=== PATIENT | male | born 1965 | race Caucasian/White ===

== ENCOUNTER 2024-11-10 19:39 | Inpatient (IN) | payer OTHER, SELFPAY ==
[2024-11-10 14:28] VITALS: BP 154/113
--- NOTE | 2024-11-10 15:08 | ED.GENMED ---
History of Present Illness
General
Chief Complaint: Male Genito-Urinary Symptoms
Source: patient
Exam Limitations: none
Time Seen by Provider: 11/10/24 14:38
Nursing documentation reviewed up to this point in time: agreed with
History of Present Illness
History of Present Illness:
58-year-old male patient of Dr. Mares urology, being treated with oral therapy for prostate cancer, developed trouble urinating emptying his bladder recently, started intermittent catheterizations at nighttime recently, subsequently developed
fever and chills, with hematuria, back pain pain in his scrotum right greater than left
Nausea without vomiting, he has chronic back pain takes oxycodone, has been constipated recently,
Past History
Past History
ED Past Medical History: Cancer and HTN
ED Past Surgical History: Orthopedic
Social History
Tobacco: Non-smoker
Alcohol: None
Drug: None
Personal:
Living: with family
Employment: Employed
Phy Exam
Physical Exam
Physical Exam:
Physical Exam
General: no apparent distress, not acutely ill
Neck: No jaundice
Heart: Tachycardia
Lungs: no acute respiratory distress. clear bilaterally
Abdomen: Mild suprapubic tenderness tenderness in the right scrotum
Neuro: alert and oriented. no focal neurological deficits
Skin: no rash
Psychiatric: well kept. interactive and cooperative
Extremities: no edema.
Course
Orders/Labs/Results
Orders:
Orders
11/10/24 14:33
EKG [Electrocardiogram (*1)] Urgent
Reason for Study: Vertigo / Dizzy
EKG- Treatment ONCE
11/10/24 14:50
CT Abd/pel Without Iv Or Oral Urgent
Comment:
Reason For Exam: fever pain
Straight cath- Treatment ONCE
Scrotum US [US Scrotum] Urgent
Comment:
Reason For Exam: fever pain
11/10/24 14:51
Bladder Scan- Treatment ONCE
HYDROmorphone [Dilaudid] 1 mg IV NOW STA
11/10/24 14:52
0.9% Sodium Chloride 1000 ml [Nss] 1,000 ml IV BOLUS
Acetaminophen [Tylenol] 1,000 mg PO NOW STA
11/10/24 15:10
Acetaminophen [Tylenol] 1,000 mg .ROUTE .STK-MED ONE
11/10/24 15:19
Complete Blood Count/With Diff Urgent
Comprehensive Metabolic Panel Urgent
Blood Culture Q30M
YONATAN Source: Blood/Venous
Specimen Description:
Blood Culture Q30M
YONATAN Source: Blood/Venous
Specimen Description:
11/10/24 16:07
Urinalysis Reflex To Culture Urgent
Date Specimen was Collected: 11/10/24
Time Specimen was Collected: 16:03
Urine Microscopic Reflex Cult Urgent
Urine Culture Urgent
YONATAN Source: U
Specimen Description:
Date Specimen was Collected: 11/10/24
Time Specimen was Collected: 16:03
11/10/24 17:27
LevoFLOXacin 750 MG/150 ML [Levaquin] 750 mg in 150 ml IV NOW
11/10/24 17:34
Add On- LAB Urgent
Tests Added?: urine culture
Abnormal Lab Results
11/10/24 11/10/24
15:19 16:07
WBC 18.8 H 10^3/uL
(4.8-10.8)
RBC 4.64 L 10^6/uL
(4.70-6.10)
Abs Immat Gran (auto) 0.1 H 10^3/uL
(0-0.05)
Absolute Neuts (auto) 15.9 H 10^3/uL
(1.4-6.5)
Absolute Lymphs (auto) 0.9 L 10^3/uL
(1.2-3.4)
Absolute Monos (auto) 1.9 H 10^3/uL
(0.1-0.6)
Immature Gran % 0.6 H %
(0-0.5)
Neutrophils % 84.5 H %
(42.2-75.2)
Lymphocytes % 4.7 L %
(20.5-51.1)
Monocytes % 9.9 H %
(1.7-9.3)
Sodium 132 L mmol/L
(135-145)
Glucose 145 H mg/dl
(70-99)
Ur Occult Blood Reflex 2+ A
(Negative)
Urine Nitrite (Reflex) Positive A
(Negative)
Leukocyte Esterase Rfl 3+ A
(Negative)
Urine RBC 3-6 A /HPF
(0-2)
Urine WBC (Reflex) 30-40 A /HPF
(0-5)
Urine Bacteria (Reflex) Many A
(Negative)
Urine Albumin (Reflex) 1+ A
(Neg - Trace)
11/10/24 15:19
11/10/24 15:19
Vital Signs
Initial and Last Documented VS:
Initial Vital Signs
Temp Pulse Resp BP Pulse Ox
98.6 F 134 20 154/113 96
11/10/24 14:28 11/10/24 14:28 11/10/24 14:28 11/10/24 14:28 11/10/24 14:28
Last Documented Vital Signs
Temp Pulse Resp BP Pulse Ox
98.6 F 134 20 154/113 96
11/10/24 14:28 11/10/24 14:28 11/10/24 14:28 11/10/24 14:28 11/10/24 15:09
*Pulse Oximetry
SaO2: 96
Oxygen Mode of Delivery: Room air
Patient hypoxic: no
*Critical Care Note
Total Time (30-74mins, 75-104mins- exclusive of procedures): 32
Update Note
Update Note:
415 able to void spontaneously postvoid 220 cc minimal dysuria
White count noted urinalysis noted blood culture urine cultures noted patient has had fever 102-103 at home concern for bacteremia allergies noted
ED Attending Note
-
Portions of this chart may have been created with voice recognition software.� Occasional wrong word or��sound alike� substitutions may have occurred due to the inherent limitations of voice recognition software.
Discharge Plan
Departure
Patient Disposition: Admit
Date of Disposition: 11/10/24
Time of Disposition: 17:45
Admit to: Med/Surg
Presentation/result/management discussed w/ accepting MD/DO: Hospitalist
Patient with high blood pressure during this ER visit?: No
Condition: Fair
Discharge Problem:
Urosepsis
Prescriptions:
No Action
Metamucil Packet
1 packet PO DAILY
ibuprofen 600 mg Tablet
600 mg PO Q6HPRN PRN (Reason: MILD PAIN)
finasteride 5 mg Tablet
5 mg PO DAILY
alfuzosin 10 mg Tablet Extended Release 24 Hr
10 mg PO QPM
oxycodone 10 mg Tablet
10 mg PO Q6HPRN PRN (Reason: SEVERE PAIN)
Referrals:
Brianda Thomas DO [Family Provider, Internal Medicine]
Interventions
Interventions:
*Risk Screen - Suicide Last Done: 11/10/24 14:28
*General Assessment Last Done: 11/10/24 15:26
*Neglect/Abuse Screening Last Done: 11/10/24 14:28
*ED- Fall Risk Assessment Last Done: 11/10/24 15:26
*ED COVID-19 Vaccine History Last Done: 11/10/24 15:26
*ED Influenza Vaccine History Last Done: 11/10/24 15:26
Discharge Date and Time
Print Language: MAURITANIAN
[2024-11-10] MEDS: DILAUDID 1 MG IV ×2 (15:20→22:41)
[2024-11-10] MEDS: TYLENOL 1000 MG PO (15:21)
[2024-11-10 15:22] VITALS: BMI 30.1
[2024-11-10] MEDS: NSS 1000 IV ×2 (15:22→22:45)
[2024-11-10 15:42] LABS: Hematocrit 39.2 % (39.0-52.0); Hemoglobin 13.3 g/dL (13.0-18.0); Mean Corp Hgb Conc. 33.9 g/dL (33.0-37.0); Mean Corpuscular Volume 84.5 fL (80.0-94.0); Nucleated Red Blood Cells % 0 % (-); Platelet Count 184 10^3/uL (130-400); Red Cell Dist. Width 11.9 % (11.5-14.5)
[2024-11-10 15:51] LABS: ALT (SGPT) 35 U/L (0-50); AST (SGOT) 35 U/L (17-59); Albumin 4.5 g/dl (3.5-5.0); Alkaline Phosphatase 79 U/L (38-126); Blood Urea Nitrogen 18 mg/dl (9-20); Calcium 8.8 mg/dl (8.4-10.2); Carbon Dioxide 26 mmol/L (22-30); Chloride 98 mmol/L (98-107); Estimated Creatinine Clearance 114 ml/min; Glucose 145 mg/dl (70-99); Potassium 4.2 mmol/L (3.5-5.1); Sodium 132 mmol/L (135-145); Total Protein 7.1 g/dl (6.3-8.2); eGFR > 60.00
[2024-11-10 16:19] LABS: Urine Character Clear (Clear)
[2024-11-10 16:32] LABS: Urine Squamous Cell 0-2 /LPF (Few)
[2024-11-10 16:33] LABS: Urine White Cell 30-40 /HPF (0-5)
[2024-11-10] MEDS: LEVAQUIN 150 IV (17:39)
--- NOTE | 2024-11-10 18:03 | HPS.HSE ---
Family Physician
-
Family Physician: Brianda Thomas
Chief Complaint
-
Dysuria, urinary frequency bilateral flank pain, hematuria, scrotal swelling right greater than left
History of Present Illness
58-year-old male with history of prostate cancer, delayed bladder emptying/urinary retention who started intermittent catheterizations at nighttime approximately 1 week ago who comes in complaining of fever and chills with temp 102�103F along with
hematuria, urinary frequency, dysuria, bilateral flank pain, back pain and pain in scrotum right greater than left. He is on chronic oxycodone for his chronic back pain and also reports feeling constipated recently. Other past medical history
includes hypertension, prostate cancer
Medical History
Past Medical History
Past Medical History: Reports Other
Additional Past Medical History:
Hypertension
BPH
Question history of prostate CA
Past Surgical History: Reports Other
Additional Past Surgical History:
Left and right knee replacement
Right shoulder replacement
Rhizotomy to back
Social History
Tobacco: Non-smoker
Alcohol: None
Drug: None
Personal:
Living: With Family
Family History
Family History: Not pertinent
Allergies / Home Medications
Allergies reflects when Allergies were last updated in [facility].
Home Medications with original date entered in [facility]
Allergy/Medication List:
Allergies
Allergy/AdvReac Type Severity Reaction Status Date / Time
Penicillins Allergy Rash Verified 03/02/12 13:48
Home Medications
alfuzosin 10 mg tablet,extended release 24 hr 10 mg PO QPM 11/10/24
finasteride 5 mg tablet 5 mg PO DAILY 11/10/24
ibuprofen 600 mg tablet 600 mg PO Q6HPRN PRN MILD PAIN 11/10/24
oxycodone 10 mg tablet 10 mg PO Q6HPRN PRN SEVERE PAIN 11/10/24
psyllium 1 packet PO DAILY 11/10/24
Review of Systems
-
History Source: Patient and Family ( at bedside)
A 12 point ROS was completed and negative except as noted: Yes
Constitutional: Reports Fever and Chills
EENT: Denies Sore Throat or Runny Nose
Respiratory: Denies Cough or Trouble Breathing
Cardiac: Denies Chest Pain, Diaphoresis, Palpitations or Syncope
Abdomen/GI: Reports Abdominal Pain (Suprapubic); Denies Nausea, Vomiting, Diarrhea, Constipated or Bloody Stools
: Reports Dysuria, Frequency, Flank Pain (Bilateral), Urgency and Other (Right scrotal swelling)
Musculoskeletal: Denies Joint Pain or Edema
Skin: Denies Itching or Rash
Neurological: Denies Dizzy or Headache
Endocrine: Reports No Symptoms
Hematologic/Lymphatic: Reports No Symptoms
Psych: Reports Calm
Physical Exam
Vital Signs
Vital Signs
Temp Pulse Resp BP Pulse Ox
98.6 F 134 20 154/113 96
11/10/24 14:28 11/10/24 14:28 11/10/24 14:28 11/10/24 14:28 11/10/24 15:09
Physical Exam
General: Pain, Fever and Chills
HEENT: NormoCephalic, Anicteric, Moist mucous membranes, PERRLA, [place] Conjunctivae and No Ptosis
Respiratory: Clear; No Wheezes, Rales or Rhonchi
Cardiac: S1/S2 and Tachycardia; No Murmur, Rub, Gallop or Peripheral Edema
Breast: Deferred by me
GI: Soft, Non Distended and Tender (Suprapubic)
Genito-urinary: Costovertebral angle tend (Bilateral flank pain) and Other (Right scrotal edema)
Musculoskeletal: No Clubbing, No Cyanosis and No Edema
Skin: Warm and Dry; No Rash
Neuro: AO x 3, No Motor Deficits, Nonfocal/grossly intact and No Sensory Deficits; No Slurred Speech, Facial Droop, Tremors or Sedated
Psych: Calm
Laboratory Results
-
11/10/24 15:19
11/10/24 15:19
Laboratory Results
Total Bilirubin 0.9 mg/dl (0.2-1.3) 11/10/24 15:19
AST 35 U/L (17-59) 11/10/24 15:19
ALT 35 U/L (0-50) 11/10/24 15:19
Alkaline Phosphatase 79 U/L (38-126) 11/10/24 15:19
Impression/Plan
-
Impression/plan:
Admit to telemetry
#Sepsis 2/2 UTI secondary to straight caths from delayed bladder emptying/urinary retention
WBC 18.8 with left shift, 98.6 F, HR 134, reported home fever 102�103
- Consult urology-patient follows with Dr. Mares
- Blood cultures x 2, urine culture
- Check CT abdomen for obstruction
- Tylenol as needed fever
- IV NSS
-IV Levaquin
-Continue patient's home oxycodone every 4-6 hours and Dilaudid for severe pain
-IV Zofran for nausea
-Continue alfuzosin 10 mg every afternoon, finasteride 5 mg daily
- Follow CBC, CMP
Voided 415 spontaneously postvoid residual [address] abdomen pelvis without contrast: No renal ureteral or bladder calculi no obstructive uropathy unremarkable urinary bladder findings suggest scrotal wall thickening and right hydrocele
Trace bilateral pleural effusions
Questionable low-attenuation 1.7 cm mass anterior junction pancreatic head and neck possibly related to local fatty infiltration recommend MRI
Moderate fecal burden
Isolated sigmoid diverticula
Mild distention with gas and fluid in the proximal jejunum. Nonspecific. Possible normal peristalsis, or mild Dysmotility related to ileus or enteritis in the proper clinical
setting.
Swollen right testicle due to right epididymoorchitis with moderate complex hydrocele likely secondary to UTI from straight cath
-Check urine G/C
- Continue IV Levaquin
# Questionable low-attenuation 1.7 cm mass anterior junction pancreatic head and neck possibly related to local fatty infiltration
-recommend outpatient MRI
#Reported constipation with fecal burden on CT likely due to chronic oral opiates
-Start MiraLAX 17 g daily, add Dulcolax
#Chronic pain on chronic oral opiates
- Continue oxycodone 10 mg every 6 hours as needed
#HTN�benign
BP 154/113 secondary to pain
No current meds listed will monitor
DVT prophylaxis
SCDs
Full code
--- NOTE | 2024-11-10 19:22 | W.PN.UPDATE ---
Update Note
Progress Note Update
This note serves as an addendum to the H&P by [employer]�
Scarlet Ava
HPI
58M HX HTN, CA prostate cancer, delayed bladder emptying/urinary retention who started intermittent catheterizations at nighttime per Uro suggestion for 1 week ago
- pw fever and chills
- T max 102�103F along with hematuria, urinary frequency, dysuria, bilateral flank pain, back pain
- pain in scrotum - R > L
- HX chronic oxycodone dependenyt chronic back pain
Relevant VS
Temp Pulse Resp BP Pulse Ox
98.6 F 85 20 154/113 96
11/10/24 14:28 11/10/24 18:09 11/10/24 18:00 11/10/24 14:28 11/10/24 18:09
PE
General: chill
HEENT: Moist OM
Lungs: CTA i
Cardiac: S1/S2 and Tachycardia
GI: Soft, Non Distended and Tender (Suprapubic)
: Bilateral flank pain) and Right scrotal edema)
MS: No Edema
Skin: Warm and Dry; No Rash
Neuro: AO x 3, No Motor Deficits,
Psych: Calm
Relevant data�
11/10/24 11/10/24
15:19 16:07
WBC 18.8 H
Sodium 132 L
Glucose 145 H
Ur Occult Blood Reflex 2+ A
Urine Nitrite (Reflex) Positive A
Leukocyte Esterase Rfl 3+ A
Urine RBC 3-6 A
Urine WBC (Reflex) 30-40 A
Urine Bacteria (Reflex) Many A
Urine Albumin (Reflex) 1+ A
CT AP without contrast:
- No renal ureteral or bladder calculi
- no obstructive uropathy unremarkable urinary bladder findings suggest scrotal wall thickening and right hydrocele
- trace bilateral pleural effusions
- questionable low-attenuation 1.7 cm mass anterior junction pancreatic head and neck possibly related to local fatty infiltration recommend MRI.
- Moderate fecal burden
- Isolated sigmoid diverticula
- mild distention with gas and fluid in the proximal jejunum.
- Nonspecific. Possible normal peristalsis, or mild Dysmotility related to ileus or enteritis in the proper clinical setting.
ASSESSMENT & PLAN
Sepsis 2/2 complicated CAUTI
Swollen R. testicle due to right epididymoorchitis with moderate complex hydrocele likely secondary to UTI from straight cath
- has been self straight cath- iung due to delayed bladder emptying/urinary retention
- Voided 415 spontaneously postvoid residual 220 cc in ER
- BCx , UCx sent
- Tylenol PRN
- IV NSS
- IV Levaquin
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
- IV Zofran for nausea
- c/w [employer]ING[employer] MANAGER alfuzosin 10 mg every afternoon, finasteride 5 mg daily
- Consult urology-patient follows with Dr. Mares
Questionable 1.7 cm mass anterior junction pancreatic head and neck possibly related to local fatty infiltration
- recommend outpatient MRI
Constipation with fecal burden on CT likely due to chronic oral opiates
- MiraLAX 17 g daily, add Dulcolax
Chronic pain on chronic oral opiates
- c/w oxycodone 10 mg every 6 hours as needed
Benign HTN� BP 154/113
DVT Px: SCD
Code: Full code
IP TLM
[2024-11-10 21:45] VITALS: BP 133/78; BMI 29.3
[2024-11-10 23:00] VITALS: BP 142/74
[2024-11-10] MEDS: TYLENOL 650 MG PO (23:45)
--- NOTE | 2024-11-11 02:10 | PTCARENOTE ---
Pt arrived to unit via stretcher. Pt walked from stretcher to bed. Pt oriented to room. Pt AAOx3, VSS. Call alberts within reach, plan of care ongoing.
[2024-11-11 03:00] VITALS: BP 136/68
[2024-11-11] MEDS: DILAUDID 1 MG IV ×3 (03:04→19:44)
[2024-11-11] MEDS: ZOFRAN 4 MG IV ×3 (03:08→21:06)
[2024-11-11 05:58] LABS: Hematocrit 37.6 % (39.0-52.0); Hemoglobin 12.6 g/dL (13.0-18.0); Mean Corp Hgb Conc. 33.5 g/dL (33.0-37.0); Mean Corpuscular Volume 86.8 fL (80.0-94.0); Nucleated Red Blood Cells % 0 % (-); Platelet Count 178 10^3/uL (130-400); Red Cell Dist. Width 11.9 % (11.5-14.5)
[2024-11-11 06:23] LABS: ALT (SGPT) 45 U/L (0-50); AST (SGOT) 34 U/L (17-59); Albumin 3.9 g/dl (3.5-5.0); Alkaline Phosphatase 79 U/L (38-126); Blood Urea Nitrogen 11 mg/dl (9-20); Calcium 8.6 mg/dl (8.4-10.2); Carbon Dioxide 24 mmol/L (22-30); Chloride 104 mmol/L (98-107); Estimated Creatinine Clearance 116 ml/min; Glucose 137 mg/dl (70-99); Potassium 4.2 mmol/L (3.5-5.1); Sodium 137 mmol/L (135-145); Total Protein 6.4 g/dl (6.3-8.2); eGFR > 60.00
[2024-11-11 07:38] VITALS: BP 138/79
[2024-11-11] MEDS: NSS 1000 IV ×2 (07:57→21:00)
[2024-11-11] MEDS: PROSCAR 5 MG PO (07:58)
[2024-11-11] MEDS: MIRALAX 17 GRAMS PO (07:58)
[2024-11-11 10:59] VITALS: BP 128/71
--- NOTE | 2024-11-11 12:48 | W.PN.UPDATE ---
Update Note
Progress Note Update
I independently evaluated the patient at the bedside. I reviewed the case with the resident and agree with all documentation unless otherwise specified.
AFVSS this morning. WBC up from 19-22.5. Patient states he feels improved
AO x 4, NAD, nontoxic. Benign cardiopulmonary and abdomen exam. Mild scrotal swelling and erythema with some tenderness. Skin otherwise warm and dry without rash. No edema or JVD, pulses palpable. No focal deficits
#Sepsis secondary to CAUTI from self-catheterization. Urine cultures and blood cultures taken on arrival. Was started on IV levofloxacin empirically. Will continue with IV Levaquin, follow cultures, trend CBC and temperature curve. Monitor PVR,
continue with alfuzosin and finasteride for BPH history. Urology appreciate
#Constipation. States he has not had bowel movement since Friday. Started on MiraLAX and docusate. Will give one-time dose of bisacodyl RI now. Continue to monitor
#Epididymoorchitis. Tender in swollen exam, scrotum ultrasound consistent. This area and Chlamydia negative. Continue with IV Levaquin as above. Consider ID consult if worsening
#Pancreatic head/neck mass. CT with 1.7 cm lesion concerning for neoplasm versus inflammatory/fatty finding. Will need an outpatient MRI with and without contrast to further assess.
Diet -- Regular
Thromboprophylaxis -- SCDs
CODE STATUS -- Full
Disposition -- Likely home discharge in 48 to 72 hours
--- NOTE | 2024-11-11 14:18 | W.PN.URO.CBU ---
Today's Communication / Plan
-
continue present care
Assessment / Plan
-
urinary retentionon cic prn and developed complicated uti sors r/out sepsis target sens of e coli cic prn
Diagnosis
-
Date of Service: November 11, 2024
-
Patient Diagnosis:does cic qd f x week due to urnarty reteention of 400cc pvr developed fever chils after 2 caths e coli in urine temp to 103
Post Op Day:
Subjective
-
feeling better
Objective
-
Vital Signs
Temp Pulse Resp BP Pulse Ox
99.1 F 77 16 128/71 96
11/11/24 10:59 11/11/24 10:59 11/11/24 10:59 11/11/24 10:59 11/11/24 10:59
Intake and Output
11/10/24 11/11/24 11/12/24
06:59 06:59 06:59
Intake Total 720 / 720
Output Total 800 / 800
Balance -80 / -80
Intake:
Oral fluids 720 / 720
Output:
Urine, Voided 800 / 800
Laboratory Results
11/11/24 05:25
11/11/24 05:25
Physical Exam
-
General - well developed, well nourished, no acute distress
Chest - clear bilaterally
Abdomen - soft, non-tender, positive bowel sounds, no CVAT, no incisional pain or distention
Genitalia - normal
Rectal - normal
Skin - warm & dry with no rash
Neuro - AOx3, no motor deficits
Extremities - no clubbing, no cyanosis, no edema
Incision - clean, dry
Dressing - clean, dry, intact
Care Review
Data Reviewed
Discussed with: Hospitalist
[2024-11-11] MEDS: SENOKOT-S 1 TABLET PO (14:43)
[2024-11-11] MEDS: ROXICODONE 10 MG PO ×2 (14:43→21:05)
[2024-11-11 15:34] VITALS: BP 138/74
--- NOTE | 2024-11-11 15:43 | W.PN.HOSP.TC ---
Addendum entered and electronically signed by Gabriel Santos DO 11/12/24 09:14:
Chronic opioid use with dependence
Original Note:
Today's Communication/Plan
-
Continue Abx
Continue IV fluids
follow up blood and urine culture
Assessment / Plan
Assessment / Plan
Impression:
58-year-old male with history of prostate cancer, delayed bladder emptying/urinary retention who started intermittent catheterizations at nighttime approximately 1 week ago who comes in complaining of fever and chills with temp 102�103F along with
hematuria, urinary frequency, scrotal pain. Admitted to sepsis secondary to UTI secondary to self- catheterization.
Assessment and Plane
#Sepsis
secondary to Catheter induced UTI from self-catheterization
f/u Urine cultures and blood cultures that was taken at ER
continue with IV Levaquin
trend CBC and temperature curve
started on IV levofloxacin
#BPH
continue with alfuzosin
finasteride for BPH history
Urology consulted
#Constipation
States he has not had bowel movement since Friday.
Started on MiraLAX and docusate
patient has bowel movement today
will give one-time dose of bisacodyl NC as needed
Continue to monitor
#Epididymoorchitis.
Tender in swollen exam
scrotum ultrasound consistent with Epididymoorchitis.
This area and Chlamydia negative
Continue with IV Levaquin as above
#Pancreatic head/neck mass
CT with 1.7 cm lesion concerning for neoplasm versus inflammatory/fatty finding
Will need an outpatient MRI with and without contrast to further assess.
Diet /Regular
Thromboprophylaxis , SCDs
Anticipated Discharge: > 48 hours
Subjective/Interval History
-
Date of Service: November 11, 2024
Patient has lower abd pain, scrotal pain with nausea.
Objective Data
-
Labs:
Laboratory Results
11/11/24
05:25
WBC 22.5 H
Hgb 12.6 L
Hct 37.6 L
Plt Count 178
Sodium 137
Potassium 4.2
Chloride 104
Carbon Dioxide 24
BUN 11
Creatinine 0.7
Glucose 137 H
Calcium 8.6
Total Bilirubin 1.0
AST 34
ALT 45
Alkaline Phosphatase 79
Vital Signs:
Vital Signs
Temp Pulse Resp BP Pulse Ox
98.8 F 79 16 138/74 97
11/11/24 15:34 11/11/24 15:34 11/11/24 15:34 11/11/24 15:34 11/11/24 15:34
I&O
11/10/24 11/11/24 11/12/24
06:59 06:59 06:59
Intake Total 720 / 720
Output Total 800 / 800
Balance -80 / -80
Review of Systems
-
History Source: Patient
Respiratory: Reports No Symptoms
Cardiac: Reports No Symptoms
Abdomen/GI: Reports Abdominal Pain
Genitourinary: Reports UTI and Other (scrotal pain)
Musculoskeletal: Reports Other (back)
Physical Exam
-
General: Well Developed, Well Nourished and No Apparent Distress
Respiratory: Clear to Auscultation
Cardiac: Regular Rhythm and S1/S2
GI: Soft, Nontender and Nondistended
Genito-urinary: Other (scrotal tenderness ,swelling , erythema)
Musculoskeletal: No Clubbing, No Cyanosis and No Edema
Neuro: Awake, Alert and Oriented
Psych: Calm
--- NOTE | 2024-11-11 16:14 | CM ---
Alert awake oriented patient who lives with his Malina who lives in a 2 story home with 3 step to enter and 13 steps to bed and bathroom. He is independent in driving and in all activities of daily living.He was offered VN he declined need.No
adaptive devices.
No VN hx / No SNF history
Pharmacy [facility]
PCP DR Thomas
PLAN Home Declined VN
[2024-11-11] MEDS: LEVAQUIN 100 IV (17:14)
[2024-11-11] MEDS: FLOMAX 0.4 MG PO (17:15)
[2024-11-11 19:30] VITALS: BP 111/82
[2024-11-11 20:32] LABS: Hepatitis C Antibody Negative (Negative)
[2024-11-11 23:40] VITALS: BP 110/63
[2024-11-12 03:02] VITALS: BP 122/67
[2024-11-12] MEDS: DILAUDID 1 MG IV ×2 (03:10→11:31)
[2024-11-12 05:43] LABS: Hematocrit 34.4 % (39.0-52.0); Hemoglobin 11.3 g/dL (13.0-18.0); Mean Corp Hgb Conc. 32.8 g/dL (33.0-37.0); Mean Corpuscular Volume 86.4 fL (80.0-94.0); Nucleated Red Blood Cells % 0 % (-); Platelet Count 175 10^3/uL (130-400); Red Cell Dist. Width 12.2 % (11.5-14.5)
[2024-11-12 05:57] LABS: ALT (SGPT) 46 U/L (0-50); AST (SGOT) 39 U/L (17-59); Albumin 3.4 g/dl (3.5-5.0); Alkaline Phosphatase 71 U/L (38-126); Blood Urea Nitrogen 12 mg/dl (9-20); Calcium 8.3 mg/dl (8.4-10.2); Carbon Dioxide 27 mmol/L (22-30); Chloride 107 mmol/L (98-107); Estimated Creatinine Clearance 116 ml/min; Glucose 129 mg/dl (70-99); Potassium 4.3 mmol/L (3.5-5.1); Sodium 138 mmol/L (135-145); Total Protein 5.8 g/dl (6.3-8.2); eGFR > 60.00
[2024-11-12] MEDS: NSS 1000 IV (06:13)
[2024-11-12] MEDS: ROXICODONE 10 MG PO (06:17)
[2024-11-12] MEDS: PROSCAR 5 MG PO (08:00)
[2024-11-12] MEDS: MIRALAX 17 GRAMS PO (08:00)
[2024-11-12 08:11] VITALS: BP 116/63
--- NOTE | 2024-11-12 08:27 | W.PN.URO.CBU ---
Today's Communication / Plan
-
elevate scrotum heating pad
Assessment / Plan
-
urinary retentionon cic prn and developed complicated uti sors r/out sepsis target sens of e coli cic prn RT EPIDIDYMITIS elevate heat toradaol u/s
Diagnosis
-
Date of Service: November 12, 2024
-
Patient Diagnosis:
Post Op Day:
Patient Diagnosis:does cic qd f x week due to urnarty reteention of 400cc pvr developed fever chils after 2 caths e coli in urine temp to 103
Post Op Day:
Subjective
-
painful t]rt hemiscrotum
Objective
-
Vital Signs
Temp Pulse Resp BP Pulse Ox
98.2 F 76 16 116/63 96
11/12/24 08:11 11/12/24 08:11 11/12/24 08:11 11/12/24 08:11 11/12/24 08:11
Intake and Output
11/11/24 11/12/24 11/13/24
06:59 06:59 06:59
Intake Total 720 / 720 2920 / 2920
Output Total 800 / 800 1200 / 1200
Balance -80 / -80 1720 / 1720
Intake:
Oral fluids 720 / 720 1920 / 1920
IV fluids (Total) 1000 / 1000
Output:
Urine, Voided 800 / 800 1200 / 1200
Laboratory Results
11/12/24 05:15
11/12/24 05:15
Review of Systems
-
Abdomen/GI: No Symptoms
: No Symptoms and Other (rt scrotal [pain swelling)
Physical Exam
-
General - well developed, well nourished, no acute distress
Chest - clear bilaterally
Abdomen - soft, non-tender, positive bowel sounds, no CVAT, no incisional pain or distention
Genitalia - rt episidymo orchitis no abscess yender no fluccuace
Rectal - normal
Skin - warm & dry with no rash
Neuro - AOx3, no motor deficits
Extremities - no clubbing, no cyanosis, no edema
Incision - clean, dry
Dressing - clean, dry, intact
Counseling
-
elevayte scroy=hood / heating pad
Care Review
Data Reviewed
Discussed with: Nursing
--- NOTE | 2024-11-12 09:05 | PN.CDI ---
CDI
- -
CDI:
Physician Documentation Request
Admit Date: 11/10/24 19:39
Dear Doctor,
Please review the following and provide your response in the progress notes.
Clinical Indicators:
- 11/10 H&P - chronic back pain
- home med oxycodone
- 11/11 PN 'constipation...has not had bowel movement since Friday'
- 1mg hydromorphone x6
- 10mg oxycodone x 3
If possible, please provide further specificity as outlined below:
Opioid use with dependence
Opioid dependence
Other (please specify)
Use of terms such as suspected, likely, concern for, or probable (associated with a specific diagnosis that is being evaluated, monitored, or treated as if it exists) are acceptable and can be coded in the inpatient setting, when documented at the
time of discharge.
Thank you,
Ruth Muniz RN
CDI Specialist
Please use your independent medical judgment in providing your response.
[2024-11-12] MEDS: TORADOL 30 MG IV (10:14)
--- NOTE | 2024-11-12 10:27 | W.PN.HOSP.TC ---
Today's Communication/Plan
-
patient received his dose of IV levofloxacin and discharged on levofloxacin po for 10 days
Assessment / Plan
Assessment / Plan
Impression:
58-year-old male with history of prostate cancer, delayed bladder emptying/urinary retention who started intermittent catheterizations at nighttime approximately 1 week ago who comes in complaining of fever and chills with temp 102�103F along with
hematuria, urinary frequency, scrotal pain. Admitted to sepsis secondary to UTI secondary to self- catheterization.
Assessment and Plane
#Sepsis
secondary to Catheter induced UTI from self-catheterization, WBC today 14 , pt is afebrile, vital stable
f/u Urine cultures and blood cultures that was taken at ER
continue with IV Levaquin
trend CBC and temperature curve
started on IV levofloxacin and will be discharged today on oral levofloxacin for 10 days
#BPH
continue with alfuzosin
finasteride for BPH history
Urology consulted
#Constipation
improved , had bowel movement this morning , likely secondary to opioid use for back pain
Started on MiraLAX and docusate
patient has bowel movement today
will give one-time dose of bisacodyl [facility] as needed
Continue to monitor
#Epididymoorchitis.
Tender in swollen exam
scrotum ultrasound consistent with Epididymoorchitis.
This Neisseria and Chlamydia with Hep C were negative
Continue with IV Levaquin as above
urology consult appreciated and recommend heat apply to the scrotum and elevation
#Pancreatic head/neck mass
CT with 1.7 cm lesion concerning for neoplasm versus inflammatory/fatty finding
Will need an outpatient MRI with and without contrast to further assess.
Diet /Regular
Thromboprophylaxis , SCDs
Anticipated Discharge: Today
Subjective/Interval History
-
Date of Service: November 12, 2024
Patient still have lower abd pain and voiding ~200 cc every 3-4 hours with hematuria, last bowel movement was this morning. Denied N/V/F.
Objective Data
-
Labs:
Laboratory Results
11/12/24
05:15
WBC 14.0 H
Hgb 11.3 L
Hct 34.4 L
Plt Count 175
Sodium 138
Potassium 4.3
Chloride 107
Carbon Dioxide 27
BUN 12
Creatinine 0.7
Glucose 129 H
Calcium 8.3 L
Total Bilirubin 0.5
AST 39
ALT 46
Alkaline Phosphatase 71
Vital Signs:
Vital Signs
Temp Pulse Resp BP Pulse Ox
98.2 F 76 16 116/63 96
11/12/24 08:11 11/12/24 08:11 11/12/24 08:11 11/12/24 08:11 11/12/24 08:11
I&O
11/11/24 11/12/24 11/13/24
06:59 06:59 06:59
Intake Total 720 / 720 2920 / 2920
Output Total 800 / 800 1200 / 1200
Balance -80 / -80 1720 / 1720
Review of Systems
-
History Source: Patient
Respiratory: Reports No Symptoms
Cardiac: Reports No Symptoms
Abdomen/GI: Reports Abdominal Pain
Genitourinary: Reports UTI (hematuria, scrotal pain )
Musculoskeletal: Reports Other (Back oain)
Physical Exam
-
General: Well Developed, Well Nourished and No Apparent Distress
Respiratory: Clear to Auscultation
Cardiac: Regular Rhythm and S1/S2
GI: Soft, Nontender and Nondistended
Genito-urinary: Other (scrotal tenderness ,swelling , erythema)
Musculoskeletal: No Clubbing, No Cyanosis and No Edema
Neuro: Awake, Alert and Oriented
Psych: Calm
[2024-11-12 11:54] VITALS: BP 129/75
[2024-11-12] MEDS: LEVAQUIN 100 IV (12:30)
[2024-11-12] MEDS: NSS IV (12:31)
--- NOTE | 2024-11-12 14:11 | W.PN.UPDATE ---
Update Note
Progress Note Update
I independently evaluated the patient at the bedside. I reviewed the case with the resident and agree with all documentation unless otherwise specified.
AFVSS this morning. WBC up from 19-22.5-14. Patient states he feels improved today, had bowel movement yesterday. Still some scrotal swelling
AO x 4, NAD, nontoxic. Benign cardiopulmonary and abdomen exam. Mild scrotal swelling and erythema with some tenderness. Skin otherwise warm and dry without rash. No edema or JVD, pulses palpable. No focal deficits
#Sepsis secondary to CAUTI from self-catheterization. Blood cultures NGTD, urine culture with E. coli resistant to first generation cephalosporins and tetracycline. Was started on IV levofloxacin empirically. Discussed with urology, will
transition to oral levofloxacin to complete an additional 10 days of antibiotics after discharge
#Constipation. States he has not had bowel movement since Friday. Started on MiraLAX and docusate. Will give one-time dose of bisacodyl OR now. Continue to monitor
#Epididymoorchitis. Scrotum ultrasound with hydrocele and signs of epididymoorchitis. Neisseria and Chlamydia negative. Urology recommended scrotal elevation and heat application. Will follow-up as outpatient for further management
#Pancreatic head/neck mass. CT with 1.7 cm lesion concerning for neoplasm versus inflammatory/fatty finding. Will need an outpatient MRI with and without contrast to further assess.
Diet -- Regular
Thromboprophylaxis -- SCDs
CODE STATUS -- Full
Disposition -- Likely home discharge today
[2024-11-12 14:13] VITALS: BP 120/71
--- NOTE | 2024-11-13 04:10 | W.DCSUMMARY ---
Documented by User: Patricia Contreras MD, Resident 11/13/24 04:54
Discharge Summary
Discharge Data
Date of Admission: 11/10/24
Date of Discharge: 11/12/24
-
Pending Results: Yes
Additional Pending Results:
Final result blood culture
Hospital Course
Discharging Physician:
Gabriel Santos, Patricia Contreras
Disposition:
Home
Primary Care Physician:
Brianda Thomas
Principal Discharge Diagnosis:
Sepsis secondary to CAUTI from self-catheterization
Epididymoorchitis
Pancreatic head/neck mass
Chronic Discharge Diagnosis:
Hypertension, BPH, hx of prostate cancer
Hospital Course:
58-year-old male with history of prostate cancer, delayed bladder emptying/urinary retention who started intermittent catheterizations at nighttime approximately 1 week ago who comes in complaining of fever and chills with temp 102�103F along with
hematuria, urinary frequency, dysuria, bilateral flank pain, back pain and pain in scrotum right greater than left. He is on chronic oxycodone for his chronic back pain and also reports feeling constipated recently.
Initial Tempt at the ER was 100.8 , other vital signs were stable, WBC 18.8 , urinalysis consistent with UTI.
Patient started on IV Levofloxacin with IV Fluids and urology evaluated him and heating pads apply and elevation of the scrotum was recommended. Ultrasound of the scrotum was done which showed Right Epididymoorchitis which has been treated with the
same above antibiotics another US of the scrotum was done on 11/12/2024 and showed slightly decreased in size compared to the prior study. Blood culture Preliminary results showed no growth to date of discharge and urine culture final results showed
Escherichia Coli. Patient tested negative for Neisseria and chlamydia and Hep C virus infection. On 11/11/2024 the WBC counts was 22.5 and decreased to 14 on 11/12/2024. Patient vital signs remain stable with no fever. He discharged in stable
condition on Levofloxacin oral to complete 10 days course at home and to follow up with his PCP for MRI of the abdomen and pelvis recommended as an outpatient for pancreatic lesion that showed in CT scan on 11/10/2024 and urologist as an an
outpatient visit.
Important Imaging Findings:
US Scrotum 11/12/2024
FINDINGS:
The right testis measures 5.0 x 3.6 x 3.3 cm. No discrete intratesticular lesions. The right testis remains mildly enlarged relative to the left with slightly decreased echogenicity and heterogeneous appearance. There is increased color flow on
color Doppler interrogation relative to the left testis. Increased flow also identified within the epididymis.
The left testis measures 4.2 x 2.5 x 2.6 cm. No intratesticular lesions. The epididymis is unremarkable.
Arterial and venous flow identified within both testes.
Again seen is a complex/loculated right hydrocele. Small simple appearing left hydrocele. Mild scrotal wall thickening.
IMPRESSION:
Redemonstration of RIGHT-sided epididymal orchitis with complex right-sided hydrocele, which may be slightly decreased in size compared to the prior study. No discrete lesions or abscess appreciated.
US Scrotum 11/10/2024
FINDINGS:
RIGHT:
Testicle size: Mild asymmetric enlargement, 5.3 x 3.6 x 3.9 cm.
Echotexture: Subtle diffuse inhomogeneous echotexture and increased vascularity. No focal mass.
Epididymis: There is mild inhomogeneity in the region of the epididymal head. There is a 3 mm epididymal head cyst.
Extratesticular: No extratesticular mass.
Hydrocele: There is a moderate hydrocele which is complex, demonstrating low-level internal echoes, as well as linear and curvilinear echogenic septations.
Varicocele: Negative.
Mild to moderate scrotal skin thickening.
LEFT:
Testicle size: 4.4 x 2.1 x 2.9 cm.
Echotexture: Normal. No hyper or hypoechoic intratesticular mass.
Blood flow: Normal.
Epididymis: Subcentimeter epididymal head cyst.
Extratesticular: No extratesticular mass.
Hydrocele: Negative.
Varicocele: Negative.
IMPRESSION:
Findings consistent with right epididymoorchitis with moderate complex hydrocele.
CT Abd/pel Without Iv Or Oral 11/10/2024
FINDINGS:
Lung bases:
Trace bilateral pleural effusions. Minor atelectasis in the posterior right costophrenic angle.
ABDOMEN:
Liver: Top normal in size. Mild fatty infiltration.
Gallbladder: Unremarkable.
Bile duct: No CT evidence of choledocholithiasis. There is mild distention of the common bile duct measuring up to 8.6 mm. Recommend correlation with liver function tests.
Pancreas: Subtle region of nodular diminished attenuation anterior margin of the pancreatic head/neck junction measuring approximately 1.7 cm (image 60 series 401). Possibly reflecting a region of fatty infiltration. Cannot exclude pancreatic mass.
Recommend follow-up nonemergent MRI.
Spleen: Normal in size.
Adrenal glands: No mass.
Kidneys: No renal or ureteral calculus. No hydronephrosis or obstructive uropathy.
Retroperitoneum: No aneurysm. No adenopathy or mass.
Peritoneum: No upper abdominal inflammatory soft tissue stranding, free air, or ascites.
Bowel: Moderate colonic fecal burden. Isolated sigmoid diverticulum measuring 11 mm. No acute inflammatory changes. Mild distention with gas and fluid in the proximal jejunum, measuring up to 2.9 cm. A few associated air-fluid levels. Nonspecific.
No transition to suggest bowel obstruction. Possible mild dysmotility with related to ileus or enteritis in the proper clinical setting.
Appendix: Normal.
Anterior abdominal wall: Small umbilical hernia measuring 1.2 cm, containing fat.
Pelvis:
No bladder calculus. No gas within the bladder lumen. No significant bladder wall thickening or soft tissue stranding.
Prostate gland measures 4.9 cm transverse. Multiple phlebolith calcifications. No ascites. No adenopathy. Mild fatty distention of the inguinal canal measuring up to 2.9 cm. No bowel herniation.
Incidental mild hydrocele on the right scrotum. Suggestion of mild wall thickening.
Osseous review:
Mild scoliosis. Facet arthrosis with grade 1 spondylolisthesis of L5 relative to S1. Advanced L3-4, L4-5, and L5-S1 degenerative disc disease. No compression deformity.
IMPRESSION:
No renal, ureteral, or bladder calculus. No obstructive uropathy.
Unremarkable unenhanced appearance of the urinary bladder.
Findings suggest scrotal wall thickening and right hydrocele.
Incidental findings include trace bilateral pleural effusions. Mild fatty infiltration of liver. Mild distention of the common bile duct measuring up to 8.6 mm. Recommend correlation with liver function tests. Questionable subtle low-attenuation 1.7
cm mass anterior junction of the pancreatic head and neck. Possibly related to more localized region of fatty infiltration. Recommend follow-up nonemergent MRI for additional characterization.
Moderate colonic fecal burden. Isolated sigmoid diverticulum. No evidence of acute diverticulitis.
Mild distention with gas and fluid in the proximal jejunum. Nonspecific. Possible normal peristalsis, or mild Dysmotility related to ileus or enteritis in the proper clinical setting.
Discharge Plan
-
Patient Disposition: Home (Routine Discharge)
Discharge Diagnosis/Procedures: Urosepsis
Condition: Good
Diet: No restrictions
Activity: As tolerated
Driving Restrictions: As prior to admission
Bathing Restrictions: OK to Shower
Others Tests: MRI of the abdomen and pelvis as an outpatient for pancreatic lesion that showed in CT scan on 11/10/2024
Activity Restrictions/Additional Instructions:
recommended by urologist to apply heat on the scrotum and scrotal elevation to decrease the swelling.
Referrals:
Brianda Thomas DO [Family Provider, Internal Medicine] - in less than 1 week
Gold Bullard MD [Active, Urology] - in one to two days
Referral Note: Please make an appointment with urology as an outpatient visit by calling this number : [phone]
Additional Discharge Medication Instructions: Added Levofloxacin for complicated UTI (catheter related) for 10 days
Prescriptions:
New
levofloxacin 750 mg tablet
750 mg PO DAILY 10 Days Qty: 10 0RF
Continued
psyllium Packet
1 packet PO DAILY
ibuprofen 600 mg Tablet
600 mg PO Q6HPRN PRN (Reason: MILD PAIN)
finasteride 5 mg Tablet
5 mg PO DAILY
alfuzosin 10 mg Tablet Extended Release 24 Hr
10 mg PO QPM
oxycodone 10 mg Tablet
10 mg PO Q6HPRN PRN (Reason: SEVERE PAIN)
Discharge Orders:
Discharge Patient (As Directed); Ordered 11/12/24
Ordered By: Patricia Contreras
Discharge Date and Time
Discharge Date/Time: 11/12/24 15:38
Print Language: BRUNEIAN

Documented by User: Gabriel Santos DO 11/13/24 14:26
Discharge Summary
Discharge Data
Date of Admission: 11/10/24
Date of Discharge: 11/12/24
Total time spent discharging patient (in min): 33
Discharge Plan
-
Patient Disposition: Home (Routine Discharge)
Discharge Diagnosis/Procedures: Urosepsis
Condition: Good
Diet: No restrictions
Activity: As tolerated
Driving Restrictions: As prior to admission
Bathing Restrictions: OK to Shower
Others Tests: MRI of the abdomen and pelvis as an outpatient for pancreatic lesion that showed in CT scan on 11/10/2024
Activity Restrictions/Additional Instructions:
recommended by urologist to apply heat on the scrotum and scrotal elevation to decrease the swelling.
Referrals:
Brianda Thomas DO [Family Provider, Internal Medicine] - in less than 1 week
Gold Bullard MD [Active, Urology] - in one to two days
Referral Note: Please make an appointment with urology as an outpatient visit by calling this number : [phone]
Additional Discharge Medication Instructions: Added Levofloxacin for complicated UTI (catheter related) for 10 days
Prescriptions:
New
levofloxacin 750 mg tablet
750 mg PO DAILY 10 Days Qty: 10 0RF
Continued
psyllium Packet
1 packet PO DAILY
ibuprofen 600 mg Tablet
600 mg PO Q6HPRN PRN (Reason: MILD PAIN)
finasteride 5 mg Tablet
5 mg PO DAILY
alfuzosin 10 mg Tablet Extended Release 24 Hr
10 mg PO QPM
oxycodone 10 mg Tablet
10 mg PO Q6HPRN PRN (Reason: SEVERE PAIN)
Discharge Orders:
Discharge Patient (As Directed); Ordered 11/12/24
Ordered By: Patricia Contreras
Discharge Date and Time
Discharge Date/Time: 11/12/24 15:38
Print Language: BRUNEIAN
== END 2024-11-12 15:38 | disposition home or self-care (01) | DRG 698 ==
LOC: 3 WEST ACU 19:39
PROVIDERS: Clinical Nurse Specialist Family Health; Specialist Research Data Abstracter/Coder; ADMITTING PHYSICIAN Internal Medicine; ATTENDING PHYSICIAN Internal Medicine; CONSULT PHYSICIAN Specialist; EMERGENCY PHYSICIAN Emergency Medicine; FAMILY PHYSICIAN Internal Medicine
DX: T83.511A Infection and inflammatory reaction due to indwelling urethral catheter, initial encounter (principal); A41.9 Sepsis, unspecified organism; F11.20 Opioid dependence, uncomplicated; N39.0 Urinary tract infection, site not specified; I10 Essential (primary) hypertension; M54.9 Dorsalgia, unspecified; G89.29 Other chronic pain; K57.30 Diverticulosis of large intestine without perforation or abscess without bleeding; K59.03 Drug induced constipation; T40.2X5A Adverse effect of other opioids, initial encounter; R33.8 Other retention of urine; N40.1 Benign prostatic hyperplasia with lower urinary tract symptoms; N45.3 Epididymo-orchitis; K86.9 Disease of pancreas, unspecified; K59.00 Constipation, unspecified; R31.9 Hematuria, unspecified; Y84.6 Urinary catheterization as the cause of abnormal reaction of the patient, or of later complication, without mention of misadventure at the time of the procedure; Y92.9 Unspecified place or not applicable; Y73.2 Prosthetic and other implants, materials and accessory gastroenterology and urology devices associated with adverse incidents; Z96.653 Presence of artificial knee joint, bilateral; Z96.611 Presence of right artificial shoulder joint; Z88.0 Allergy status to penicillin; Z85.46 Personal history of malignant neoplasm of prostate; Z79.899 Other long term (current) drug therapy
CPT/HCPCS: 74176; 76870; 80053; 81003; 81015; 85025; 86803; 87040; 87077; 87086; 87186; 87491; 87591; 93005; 93976; 96365; 96366; 96375; 99291

== ENCOUNTER 2025-01-14 06:20 | Day surgery (SDC) | payer OTHER, SELFPAY ==
--- NOTE | 2025-01-12 15:05 | PTCARENOTE ---
Abnormal ECG done 11/10/[address] Clemens, no further interventions requested.
[2025-01-14] VITALS (13 sets, daily range): BP systolic 117–143; BP diastolic 69–92; BMI 29.9
[2025-01-14] MEDS: NORMOSOL-R/PLASMALYTE-A 1000 IV (10:47)
[2025-01-14] MEDS: DILAUDID 0.5 MG IV ×2 (13:28→13:46)
[2025-01-14] MEDS: ZOFRAN 4 MG IV (13:55)
--- NOTE | 2025-01-14 15:21 | PTCARENOTE ---
Received pt from PACU via bed. Pt AAOX3. IVFs infusing without difficulty. Pox: 98% RA. Call alberts within reach. Plan of care ongoing.
[2025-01-14] MEDS: COLACE 100 MG PO (15:34)
[2025-01-14] MEDS: ROXICODONE 10 MG PO ×2 (17:00→23:02)
[2025-01-14] MEDS: FLOMAX 0.4 MG PO (18:07)
[2025-01-14] MEDS: TYLENOL 650 MG PO (19:54)
[2025-01-14] MEDS: MELATONIN 3 MG PO (23:02)
[2025-01-15 03:08] VITALS: BP 114/62
[2025-01-15] MEDS: ROXICODONE 10 MG PO (05:37)
[2025-01-15 06:00] VITALS: BMI 29.5
--- NOTE | 2025-01-15 06:50 | W.PN.UPDATE ---
Update Note
Progress Note Update
POD 1 s/p TURP
'I feel great!'
Luque out
home after voids
[2025-01-15] MEDS: TYLENOL 650 MG PO (07:09)
[2025-01-15 07:25] VITALS: BP 133/88
[2025-01-15] MEDS: FLUZONE (6 mos+) 2025-2026 FORMULA 0.5 ML IM (08:25)
[2025-01-15] MEDS: PROSCAR 5 MG PO (08:25)
[2025-01-15] MEDS: COLACE 100 MG PO (08:25)
[2025-01-15 11:15] VITALS: BP 135/71
== END 2025-01-15 12:41 | disposition home or self-care (01) ==
LOC: SDS 06:20
PROVIDERS: ATTENDING PHYSICIAN Specialist
DX: N40.1 Benign prostatic hyperplasia with lower urinary tract symptoms (principal); R33.9 Retention of urine, unspecified; N41.0 Acute prostatitis; N41.1 Chronic prostatitis
CPT/HCPCS: 52601; 88305; 88344; 90656; G0008